=== PATIENT | female | born 1975 | race Caucasian/White ===

== ENCOUNTER 2020-12-03 09:02 | Emergency (ER) | payer MEDICAID ==
[~2020-12-03] VITALS: Ht 165.1 cm; Wt 77.0 kg
[2020-12-03] MEDS ORDERED: KETOROLAC 15MG/ML VIAL IV ONE (09:30)
[2020-12-03] MEDS ORDERED: SODIUM CHLORIDE 0.9% 1,000 ML IV ONE (09:30)
[2020-12-03] MEDS ORDERED: NICO-645 TP (09:37)
[2020-12-03 09:38] LABS: BASOPHILS % 0.9 % (0.0-2.0); EOSINOPHILS % 2.2 % (0.0-5.0); HEMATOCRIT. 41.9 % (36.0-48.0); HEMOGLOBIN. 14.5 g/dL (12.0-16.0); LYMPHOCYTES % 35.7 % (20.0-50.0); MEAN CORPUSCULAR HEMOGLOBIN 30.6 pg (28.0-32.0); MEAN CORPUSCULAR VOLUME 88.8 fL (81.0-99.0); MEAN PLATELET VOLUME 8.2 fl (7.4-10.4); MONOCYTES % 7.5 % (2.0-8.0); NEUTROPHILS % 53.7 % (40.0-76.0); PLATELET 383 x1000/uL (130-400); RED BLOOD CELL COUNT 4.72 mill/uL (4.2-5.4)
[2020-12-03 09:45] LABS: CHLORIDE 108 mEq/L (98-107)
[2020-12-03 11:32] VITALS: BP 118/69
== END 2020-12-03 11:41 | disposition home or self-care (01) ==
LOC: ER 09:02
DX: R07.89 Other chest pain (principal); R53.81 Other malaise; S40.022A Contusion of left upper arm, initial encounter; F17.210 Nicotine dependence, cigarettes, uncomplicated; Z98.890 Other specified postprocedural states; X58.XXXA Exposure to other specified factors, initial encounter; Y93.89 Activity, other specified; Y92.018 Other place in single-family (private) house as the place of occurrence of the external cause
CPT/HCPCS: 36415; 71045; 80053; 84484; 85025; 93005; 96361; 96374; 99285; J1885; J7030

== ENCOUNTER 2021-02-08 11:36 | Inpatient (IN) | payer SELFPAY ==
[~2021-02-08] VITALS: Ht 165.1 cm; Wt 75.7 kg
[~2021-02-08 11:36] MED LIST: NICO-645 TP
[2021-02-08] MEDS ORDERED: SODIUM CHLORIDE 0.9% 1,000 ML IV ONE (12:30)
[2021-02-08 12:43] LABS: BASOPHILS % 0.8 % (0.0-2.0); EOSINOPHILS % 2.7 % (0.0-5.0); HEMATOCRIT. 42.2 % (36.0-48.0); HEMOGLOBIN. 14.6 g/dL (12.0-16.0); MEAN CORPUSCULAR HEMOGLOBIN 30.5 pg (28.0-32.0); MEAN CORPUSCULAR VOLUME 87.8 fL (81.0-99.0); MEAN PLATELET VOLUME 8.4 fl (7.4-10.4); MONOCYTES % 6.2 % (2.0-8.0); NEUTROPHILS % 51.3 % (40.0-76.0); PLATELET 348 x1000/uL (130-400); RED CELL DISTRIBUTION WIDTH 14.1 % (11.6-14.6)
[2021-02-08 12:49] LABS: CHLORIDE 110 mEq/L (98-107)
[2021-02-08 12:58] LABS: HCG SCREEN NEGATIVE
[2021-02-08] MEDS ORDERED: ASPIRIN 325MG EC TABLET PO ONE (16:30)
[2021-02-08] MEDS ORDERED: GUAIFENESIN 200MG/10ML SUGAR FREE UDC PO PRN (17:00)
[2021-02-08] MEDS ORDERED: MORPHINE SULFATE 2 MG/ML CPJ (NOT FOR IM USE) IV PRN (17:00)
[2021-02-08] MEDS ORDERED: LORAZEPAM 2MG/ML CPJ IV PRN (17:00)
[2021-02-08] MEDS ORDERED: HYDRALAZINE 20MG/ML VIAL IV PRN (17:00)
[2021-02-08] MEDS ORDERED: ACETAMINOPHEN 325MG TABLET PO PRN (17:00)
[2021-02-08] MEDS ORDERED: MAGNESIUM/ALUMINUM HYDROXIDE/SIMETHICONE 30ML UDC PO PRN (17:00)
[2021-02-08] MEDS ORDERED: HYDROCODONE/ACETAMINOPHEN 5/325MG TABLET PO PRN (17:00)
[2021-02-08] MEDS ORDERED: DOCUSATE SODIUM 100MG CAPSULE PO PRN (17:00)
[2021-02-08] MEDS ORDERED: IPRATROPIUM/ALBUTEROL 0.5-3(2.5)MG/3ML NEB HHN PRN (17:00)
[2021-02-08] MEDS ORDERED: ENOXAPARIN 40MG/0.4ML SYR SUBCUT SCH (17:00)
[2021-02-08] MEDS ORDERED: DIPHENHYDRAMINE 50MG/ML VIAL IV PRN (17:00)
[2021-02-08] MEDS ORDERED: ONDANSETRON HCL 4MG/2ML INJ IV PRN (17:00)
[2021-02-08] MEDS ORDERED: CLONIDINE 0.1MG TABLET PO PRN (17:00)
[2021-02-08 20:00] VITALS: BP 105/62
[2021-02-08] MEDS ORDERED: IOHEXOL-350 100 ML BOTTLE ONE (20:04)
[2021-02-08] MEDS: SODIUM CHLORIDE 0.9% INJ 3ML FLUSH IVF SCH (21:28)
[2021-02-09] VITALS: BP 100/66
[2021-02-09 00:37] LABS: CREATINE KINASE 53 IU/L (26-192)
[2021-02-09 00:38] LABS: CREATINE KINASE MB FRACTION < 1.0 ng/mL (0.5-3.6)
[2021-02-09 04:00] VITALS: BP 113/80
[2021-02-09] MEDS: SODIUM CHLORIDE 0.9% INJ 3ML FLUSH IVF SCH (06:42)
[2021-02-09 08:00] VITALS: BP 115/84
[2021-02-09] MEDS ORDERED: NALOXONE HCL 0.4MG/ML VIAL IV PRN (08:00)
[2021-02-09] MEDS ORDERED: REGADENOSON 0.4 MG/5 ML IV ONE (08:15)
[2021-02-09 08:30] LABS: BASOPHILS % 0.8 % (0.0-2.0); EOSINOPHILS % 3.4 % (0.0-5.0); HEMATOCRIT. 42.1 % (36.0-48.0); MEAN CORPUSCULAR HEMOGLOBIN 30.1 pg (28.0-32.0); MEAN CORPUSCULAR VOLUME 90.8 fL (81.0-99.0); MEAN PLATELET VOLUME 8.7 fl (7.4-10.4); MONOCYTES % 7.2 % (2.0-8.0); NEUTROPHILS % 47.6 % (40.0-76.0); PLATELET 306 x1000/uL (130-400); RED BLOOD CELL COUNT 4.64 mill/uL (4.2-5.4)
[2021-02-09 08:34] LABS: CHLORIDE 109 mEq/L (98-107)
[2021-02-09 08:42] LABS: CREATINE KINASE 45 IU/L (26-192)
[2021-02-09 08:45] LABS: CREATINE KINASE MB FRACTION < 1.0 ng/mL (0.5-3.6)
[2021-02-09] MEDS ORDERED: ASPIRIN 81MG TABLET PO SCH (09:00)
[2021-02-09 09:10] LABS: T4 FREE 0.97 ng/dL (0.76-1.46)
== END 2021-02-09 08:45 | disposition left against medical advice (07) | DRG 47 ==
LOC: ER 11:36 → 8WST 16:29 → EDBEDREQ 16:37 → ENRESERV 17:31
PROVIDERS: ADMIT Internal Medicine; ATTEND Internal Medicine
DX: G45.9 Transient cerebral ischemic attack, unspecified (principal); F17.210 Nicotine dependence, cigarettes, uncomplicated; N28.1 Cyst of kidney, acquired; R07.9 Chest pain, unspecified; Z53.29 Procedure and treatment not carried out because of patient's decision for other reasons; Z20.822 Contact with and (suspected) exposure to COVID-19
CPT/HCPCS: 36415; 71045; 71275; 74174; 80053; 80061; 82550; 82553; 83036; 83880; 84439; 84443; 84484; 84703; 85025; 87426; 93005; 93970; 99285; J1650; J7030; Q9967

== ENCOUNTER 2021-09-20 09:28 | Emergency (ER) | payer MEDICAID ==
[~2021-09-20] VITALS: Ht 157.5 cm; Wt 77.0 kg
[2021-09-20] MEDS ORDERED: KETOROLAC 60MG/2ML VIAL IM STA (09:49)
[2021-09-20] MEDS ORDERED: SUMATRIPTAN SUCCINATE 6MG/0.5ML VIAL SUBCUT ONE (10:00)
[2021-09-20] MEDS ORDERED: METOCLOPRAMIDE HCL 10MG TABLET PO ONE (10:00)
[2021-09-20] MEDS ORDERED: IBUP-2030 MT (10:23)
[2021-09-20] MEDS ORDERED: ONDA4TAB11 PO (10:23)
[2021-09-20 11:13] VITALS: BP 127/74
== END 2021-09-20 11:15 | disposition home or self-care (01) ==
LOC: ER 09:28
DX: R51.9 Headache, unspecified (principal); R11.0 Nausea
CPT/HCPCS: 96372; 99284; J1885; J3030; J8597

== ENCOUNTER 2022-02-13 08:33 | Emergency (ER) | payer MEDICAID ==
[~2022-02-13] VITALS: Ht 160 cm; Wt 73.0 kg
[~2022-02-13 08:33] MED LIST changes: +IBUP-2030 MT; +ONDA4TAB11 PO
[2022-02-13 08:46] VITALS: BP 127/65
[2022-02-13] MEDS ORDERED: KETOROLAC 15MG/ML VIAL IV ONE (10:45)
[2022-02-13] MEDS ORDERED: SODIUM CHLORIDE 0.9% 1,000 ML IV ONE (10:45)
[2022-02-13] MEDS ORDERED: DIPHENHYDRAMINE 50MG/ML VIAL IV ONE (10:45)
== END 2022-02-13 13:45 | disposition home or self-care (01) ==
LOC: ER 08:35
DX: R51.9 Headache, unspecified (principal)
CPT/HCPCS: 81025; 96361; 96374; 96375; 99284; J1200; J1885; J7030

== ENCOUNTER 2023-08-10 20:32 | Emergency (ER) | payer SELFPAY ==
[~2023-08-10] VITALS: Ht 158.8 cm; Wt 78.0 kg
[2023-08-10 21:55] VITALS: BP 124/79; PULSE 79; TEMP 97.8; O2SAT 98
[2023-08-10 21:57] VITALS: RESP 16
== END 2023-08-11 05:01 | disposition left against medical advice (07) ==
LOC: ER 20:32
DX: R10.9 Unspecified abdominal pain (principal); Z53.21 Procedure and treatment not carried out due to patient leaving prior to being seen by health care provider
CPT/HCPCS: 99281